=== PATIENT | male | born 1985 | race Caucasian/White ===

== ENCOUNTER 2020-01-15 10:50 | Emergency (ER) | payer MEDICAID ==
[~2020-01-15] VITALS: Ht 185.4 cm; Wt 88.5 kg
[2020-01-15 11:19] VITALS: BP 138/90
--- NOTE | 2020-01-15 11:19 | NUR ---
CALLED FOR ANA LILIA
[2020-01-15] MEDS ORDERED: PSEUDOEPHEDRINE HCL 30 MG TABLET PO ONE (11:30)
[2020-01-15] MEDS ORDERED: OXYMETAZOLINE HCL NASAL SPRAY 30 ML BOTTLE NS ONE ×2 (11:30→11:34)
[2020-01-15] MEDS ORDERED: PSEUDOEPHEDRINE HCL 30 MG TABLET ONE (11:35)
--- NOTE | 2020-01-15 11:42 | NUR ---
SEEN BY ANA LILIA FLEMING AND CLEARED FOR D/C
--- NOTE | 2020-01-15 12:24 | NUR ---
Social service consult requested by MD for homelessness. Per ED notes, pt is a 34-year-old male who came to [facility] with complaints of sore throat. WRINGER OPERATOR met with the pt bedside. WRINGER OPERATOR introduced self and purpose of visit. Pt is alert and oriented x 4. Pt's mood is congruent. Pt is pleasant and cooperative with WRINGER OPERATOR. Pt reports to be homeless for the past 2 years. Pt is currently living in his truck. Pt is from [facility] and recently transferred his [facility] to [facility]. Pt reports he recently completed detox and inpatient program at [facility]. Pt reports to drink once in a while. Pt denies drug use. Pt. reports to have had alcohol 4 days ago. Pt had also attended an alcohol treatment program in his mid-twenties. Pt has a psychiatric diagnosis of Bipolar II, PTSD and Major Depressive Disorder. Pt currently takes Gabapentin, Lexapro, BuSpar, Trazodone and Paxil. Pt is compliant with is medications. Pt currently denies SI/HI. Pt is receiving mental health services through [facility] and his leather case finisher is Ольга Chamberlain at . Pt has applied for GR and Food stamps. Pt is interested in the [facility] at [facility]. WRINGER OPERATOR provided pt with homeless packet which includes [facility] 2627-9743 [facility] program list, [facility] located at [address] [facility] ; [facility]. [facility] [place], [address] [place] [address] [place] ; [facility] [place], [address] [facility] ; [facility] Homeless Resource Directory which includes food stamps, transitional housing, showers and hot meals etc; Mental Health clinics such as [facility] ; [facility] ; Health clinics;[facility] and Alcohol treatment centers such as [facility], ; [facility] Substance Abuse Hotline and [facility] ; event lighting specialist guide for [facility]. Pt was offered a TAP card but pt. declined stating he has one and he can get a refill if needed at [facility]. No other social service needs are required at this time. Homeless Patient wavier form was signed by the pt upon discharge. LINN Allan was updated with pt's discharge plan.
== END 2020-01-15 11:47 | disposition home or self-care (01) ==
LOC: ER 10:54
DX: J20.9 Acute bronchitis, unspecified (principal); J02.9 Acute pharyngitis, unspecified; F17.200 Nicotine dependence, unspecified, uncomplicated; Z60.2 Problems related to living alone; Z59.0 Homelessness